=== PATIENT | female | born 1990 | race Caucasian/White ===

== ENCOUNTER 2023-01-01 23:31 | Emergency (ER) | payer MEDICAID, SELFPAY ==
[2023-01-01 23:36] VITALS: BP 122/84; PULSE 60; RESP 16; TEMP 36.4; O2SAT 100; BMI 19.8
--- NOTE | 2023-01-01 23:44 | XR_ITS ---
The [address] [address] Patient Name: ARIEL ALLEN MRN: [id number] date: 1990 Sex: F Assigned Patient Location: ED.MAIN Current Patient Location: ER Accession/Order Number: [id number] Exam Date: 01/01/2023 23:59 Report Date: 01/02/2023 00:19 At the request of: MICHEL DUBON Procedure: XR ankle RT min 3V EXAM: XR ankle RT min 3V HISTORY: pain history of trauma COMPARISON: None. TECHNIQUE: 3 view study FINDINGS: Overall bony architecture is normal. Ankle mortise relationships are intact. Mild lateral soft tissue swelling is noted. IMPRESSION: No evidence for acute fracture or dislocation. Electronically authenticated by: Anson QUINTANILLA Date: 01/02/2023 00:19
--- NOTE | 2023-01-01 23:57 | ED.LOWEXI1 ---
HPI - Extremity Injury (Lower) General Chief Complaint: Extremity Injury, Lower Stated Complaint: RT ANKLE SWELLING Time Seen by Provider: 01/01/23 23:55 Source: patient Mode of arrival: walk-in Limitations: no limitations History of Present Illness HPI Narrative: twist right ankle yesterday. Still has pain. Denies other injury. No numbness or weaknes complaint: Reports ankle injury Related Data Home Medications Medication Instructions Recorded Confirmed pregabalin 150 mg capsule 150 mg PO Q8H 01/01/23 01/01/23 Allergies Allergy/AdvReac Type Severity Reaction Status Date / Time No Known Drug Allergies Allergy Verified 01/01/23 23:41 Review of Systems ROS Status of ROS 10 or more systems reviewed and unremarkable except as noted in history and below PFSH PFS Social History Smoking status: Current every day smoker Exam Constitutional Vital Signs - 24 hr 01/01/23 23:36 Temperature 97.6 F Pulse Rate [Monitor] 60 Respiratory Rate 16 Blood Pressure [Right Arm] 122/84 H Pulse Oximetry 100 Oxygen Delivery Method Room Air Common normals: no apparent distress, oriented x3, no limitations, healthy appearing and alert HENMT Common normals: normocephalic and head/scalp atraumatic Eye Common normals: PERRL and conjunctivae normal Respiratory Common normals: no use of accessory muscles Cardio Common normals: regular rate Extremity Other: focal swelling right lat. malleolus Neuro Common normals: oriented x3, moves all extremities, no focal motor deficits and no sensory deficits noted Psych Appearance: grossly normal Course Vital Signs Vital signs: Vital Signs Temperature 97.6 F 01/01/23 23:36 Pulse Rate 60 01/01/23 23:36 Respiratory Rate 16 01/01/23 23:36 Blood Pressure 122/84 H 01/01/23 23:36 Pulse Oximetry 100 01/01/23 23:36 Oxygen Delivery Method Room Air 01/01/23 23:36 Temperature 97.6 F 01/01/23 23:36 Pulse Rate 60 01/01/23 23:36 Respiratory Rate 16 01/01/23 23:36 Blood Pressure 122/84 H 01/01/23 23:36 Pulse Oximetry 100 01/01/23 23:36 Oxygen Delivery Method Room Air 01/01/23 23:36 MDM - Extremity Injury (Lower) MDM Narrative Medical decision making narrative: presents one day after ankle injury. focal swelling lat. malleolus. xray neg for fracture. Patient placed in a air splint and discharged home Discharge Plan Discharge Chief Complaint: Extremity Injury, Lower Clinical Impression: Ankle sprain and strain Patient Disposition: Home, Self-Care Prescriptions / Home Meds: No Action pregabalin 150 mg capsule 150 mg PO Q8H Instructions: Ankle Sprain (ED) Stand Alone Forms: Portal Instructions Referrals: Physician,Non-Staff, MD [Primary Care Provider] - 1 week
== END 2023-01-02 00:55 | disposition home or self-care (01) ==
PROVIDERS: Emergency Provider Internal Medicine
DX: S93.401A Sprain of unspecified ligament of right ankle, initial encounter (principal); S96.911A Strain of unspecified muscle and tendon at ankle and foot level, right foot, initial encounter; X50.1XXA Overexertion from prolonged static or awkward postures, initial encounter; F17.210 Nicotine dependence, cigarettes, uncomplicated
CPT/HCPCS: 73610; 99283

== ENCOUNTER 2023-11-05 20:40 | Emergency (ER) | payer MEDICAID, SELFPAY ==
[2023-11-05 20:56] VITALS: BP 130/81; PULSE 86; TEMP 36.7; O2SAT 98; BMI 18.7
--- NOTE | 2023-11-05 21:02 | XR_ITS ---
The [address] [address] Patient Name: ARIEL ALLEN MRN: [id number] date: 1990 Sex: F Assigned Patient Location: ER Current Patient Location: ER Accession/Order Number: [id number] Exam Date: 11/05/2023 21:20 Report Date: 11/05/2023 21:42 At the request of: JESUS WARD Procedure: XR ankle RT min 3V EXAM: XR ankle RT min 3V HISTORY: pain COMPARISON: 01/02/2023 TECHNIQUE: 3 views of the right ankle FINDINGS: No acute fracture or dislocation. Joint spaces are well-maintained. Moderate lateral ankle soft tissue swelling. XR/XR ankle RT min 3V IMPRESSION: No acute fracture. Electronically authenticated by: MOHIT ADAMSON Date: 11/05/2023 21:42
--- NOTE | 2023-11-05 21:50 | XR_ITS ---
The [address] [address] Patient Name: ARIEL ALLEN MRN: [id number] date: 1990 Sex: F Assigned Patient Location: ER Current Patient Location: ED.MAIN Accession/Order Number: [id number] Exam Date: 11/05/2023 22:10 Report Date: 11/05/2023 22:28 At the request of: JESUS WARD Procedure: XR foot RT min 3V EXAM: XR foot RT min 3V HISTORY: The patient is a 33-year-old female, pain COMPARISON: None. FINDINGS: The right foot is radiographically negative with no evidence of fracture, dislocation, joint space narrowing, osteophytes, or other osseous or articular abnormalities. XR/XR foot RT min 3V IMPRESSION: Negative. Electronically authenticated by: SIDNEY BAL Date: 11/05/2023 22:28
--- NOTE | 2023-11-05 22:24 | ED.GENADUL1 ---
HPI HPI - General Adult General Chief complaint: Extremity Injury, Lower Stated complaint: LOWER EXTREMITY INJURY Time Seen by Provider: 11/05/23 20:52 Source: patient Mode of arrival: Wheelchair Limitations: no limitations History of Present Illness HPI narrative: 33-year-old female presents with chief complaint of right foot, ankle pain. She accidentally twisted her ankle. Soft tissue swelling is noted. Extremities neurovascular intact good capillary refill. Bruising noted to the fourth fifth metatarsal region. Patient is able to ambulate. Related Data Home Medications ?Medication ?Instructions ?Recorded ?Confirmed pregabalin 150 mg capsule 150 mg PO Q8H 01/01/23 11/05/23 Allergies Allergy/AdvReac Type Severity Reaction Status Date / Time No Known Drug Allergies Allergy Verified 11/05/23 20:56 Opioid HPI Opioid Management Most Recent Opioid Data: No Data to Display Review of Systems ROS Narrative All Systems are negative except as noted/marked.All systems reviewed and otherwise negative PFSH PFSH Social History Smoking status: Current every day smoker Exam Narrative Exam Narrative: Nurses note and vital signs reviewed and patient is not hypoxic. General: The patient appears well and in no apparent distress. Patient is resting comfortably on cart. Skin: Warm, dry, no pallor noted. There is no rash noted. Head: Normocephalic, atraumatic Eye: Normal conjunctiva, no drainage, EOMI. PERRL Musculoskeletal: right lateral Malleolar swelling ecchymosis, fourth fifth metatarsal swelling tenderness, neurovascularly intact.The patient has no evidence of calf tenderness, no pitting edema, symmetrical pulses noted bilaterally Neurological: A&O x4, normal speech Psychiatric: Cooperative Constitutional Vital Signs, click to edit/add: Last Vital Signs Temp 98.1 F 11/05/23 20:56 Pulse 86 11/05/23 20:56 Resp 16 11/05/23 20:56 BP 130/81 11/05/23 20:56 Pulse Ox 98 11/05/23 20:56 O2 Del Method Room Air 11/05/23 20:56 Course Vital Signs Vital signs: Vital Signs Temperature 98.1 F 11/05/23 20:56 Pulse Rate 86 11/05/23 20:56 Respiratory Rate 16 11/05/23 20:56 Blood Pressure 130/81 11/05/23 20:56 Pulse Oximetry 98 11/05/23 20:56 Oxygen Delivery Method Room Air 11/05/23 20:56 Temperature 98.1 F 11/05/23 20:56 Pulse Rate 86 11/05/23 20:56 Respiratory Rate 16 11/05/23 20:56 Blood Pressure 130/81 11/05/23 20:56 Pulse Oximetry 98 11/05/23 20:56 Oxygen Delivery Method Room Air 11/05/23 20:56 Medical Decision Making MDM Narrative Medical decision making narrative: Right foot ankle pain and tenderness. Extremities neurovascular intact good capillary refill distally. X-ray shows no acute deformity or fracture. Patient has flexion Bipin wrap and Aircast. Nursing staff. Patient will follow-up with Dr. Ortiz Differential Diagnosis Differential Diagnosis: Ankle fracture, ankle sprain Medical Records Medical records reviewed: Yes I reviewed the patient's medical records Imaging Data ankle: Radiologist's impression: ITS Impressions Ankle X-Ray 11/05/23 21:02 IMPRESSION: No acute fracture. Electronically authenticated by: MOHIT ADAMSON Date: 11/05/2023 21:42 Discharge Plan Discharge Stand Alone Forms: Portal Instructions Chief Complaint: Extremity Injury, Lower Clinical Impression: Ankle sprain and strain Patient Disposition: Home, Self-Care Time of Disposition Decision: 22:24 Prescriptions / Home Meds: No Action pregabalin 150 mg capsule 150 mg PO Q8H Print Language: British Instructions: P.R.I.C.E. Treatment (ED), Ankle Strain (ED) Referrals: Physician,Non-Staff, [Primary Care Provider] - 1 week
== END 2023-11-05 22:58 | disposition home or self-care (01) ==
PROVIDERS: Emergency Provider Emergency Medicine; PCP Family Medicine
DX: S93.401A Sprain of unspecified ligament of right ankle, initial encounter (principal); S96.911A Strain of unspecified muscle and tendon at ankle and foot level, right foot, initial encounter; X50.1XXA Overexertion from prolonged static or awkward postures, initial encounter; F17.210 Nicotine dependence, cigarettes, uncomplicated
CPT/HCPCS: 73610; 73630; 99284